=== PATIENT | male | born 1965 | race Hispanic/Latino ===

== ENCOUNTER 2021-11-13 15:10 | Emergency (ER) | payer SELFPAY ==
[~2021-11-13] VITALS: Ht 154.9 cm; Wt 90.7 kg
[2021-11-13] MEDS ORDERED: SOTROVIMAB 500 MG in SODIUM CHLORIDE 0.9% 100 ML IV ONE (15:30)
== END 2021-11-13 17:57 | disposition home or self-care (01) ==
LOC: ER 15:11
DX: U07.1 COVID-19 (principal); R05.9 Cough, unspecified; I10 Essential (primary) hypertension; E78.5 Hyperlipidemia, unspecified
CPT/HCPCS: 99283; J7050